=== PATIENT | male | born 1960 | race African-American/Black ===

== ENCOUNTER 2016-05-17 23:02 | Emergency (ER) | payer BC ==
--- NOTE | ~2016-05-17 | CR72 ---
[facility] A Service of [facility] & [facility] / [facility] RADIOLOGY TEXT RESULTS PATIENT: ZULY BOJORQUEZ LOCATION: [facility] : 58 UNIT #: [id number] AGE: [address]: Alexy Chavez MD SEX: M ORDER DR: [id number] [facility] [address] [place], [place] [address] [id number] E MR#: [id number] Acc #: [id number] NAME: ZULY BOJORQUEZ : 1960 SEX: M STUDY DATE/TIME: 05/17/2016 UNIT: [facility] ROOM: STUDY DESCRIPTION: CR Chest Single View Portable Attending Physician: Alexy Chavez M.D. Ordering Physician: Alexy Chavez M.D. Primary Care Physician: Gil Ramirez M.D. MEDICAL IMAGING REPORT This report is preliminary unless electronic signature is present EXAM Portable chest 05/17 at 22:59 INDICATIONS Headache, weakness, shortness of air and loss of appetite for 3 days. History of hypertension. FINDINGS A single AP portable view of the chest shows both lungs to be clear. The heart is normal in size. The mediastinal contour is normal. No significant bone abnormalities are seen. IMPRESSION Normal portable chest. Dictated by... Antelmo Yousif Jr., M.D. THIS IS AN ELECTRONICALLY VERIFIED REPORT Antelmo Yousif Jr., M.D. at 05/18/2016 9:58 PM MARIA ISABEL/aleksandr TD: 05/18/2016 10:24 JOB #: [id number] MEDICAL IMAGING REPORT COPY
--- NOTE | ~2016-05-17 | EKG ---
PATIENT: ZULY BOJORQUEZ UNIT #: [id number] Ventricular Rate: 76 BPM Atrial Rate: 76 BPM P-R Interval: 134 ms QRS Duration: 146 ms Q-T Interval: 410 ms QTC Calculation(Bezet): 461 ms P Cummings: 33 degrees Calculated R Cummings: -56 degrees Calculated T Cummings: 4 degrees Diagnosis Line: Normal sinus rhythm Diagnosis Line: Right bundle branch block Diagnosis Line: Left anterior fascicular block Diagnosis Line: Bifascicular block Diagnosis Line: Voltage criteria for left ventricular hypertrophy Diagnosis Line: Abnormal ECG Diagnosis Line: When compared with ECG of 03-JUN-2010 11:51, Diagnosis Line: (RBBB and left anterior fascicular block) is now Diagnosis Line: Present Diagnosis Line: Confirmed by FÁTIMA WHITE MD ([id number]) on Diagnosis Line: 05/18/2016 4:13:32 PM INTERPRETING MD: CHRISTOPHER BOGGS
[2016-05-17 22:56] LABS: URINE SOURCE CLEAN CATCH
[2016-05-17 22:59] LABS: BASOPHIL% 0.5 % (0-2.5); DIFF IND NO; EOSINOPHIL# 0.1 X10e3 (0-0.7); EOSINOPHIL% 2.2 % (0.0-7.0); HEMOGLOBIN 16.9 gm/dL (13.0-16.0); LYMPHOCYTE# 1.7 X10e3 (1.0-3.5); LYMPHOCYTE% 32.2 % (17.0-45.0); MEAN CELL VOLUME 93.5 FL (83-96); MEAN CORPUSCULAR HEMOGLOBIN 31.5 PG (28-34); MEAN CORPUSCULAR HGB CONC 33.7 g/dL (30-36); MEAN PLATELET VOLUME 8.8 FL (6.5-11.5); MONOCYTE# 0.4 X10e3 (0-1.0); MONOCYTE% 8.3 % (3.0-12.0); NEUTROPHIL# 3.1 X10e3 (1.5-7.1); NEUTROPHIL% 56.8 % (40-75); PLATELET COUNT 215 X10e3 (140-420); RED BLOOD COUNT 5.35 X10e (3.90-5.60); WHITE BLOOD COUNT 5.4 X10e3 (4.0-10.5)
[2016-05-17 23:00] LABS: URINE APPEARANCE CLEAR; URINE BILIRUBIN NEG (NEG); URINE BLOOD NEG (NEG); URINE COLOR YELLOW; URINE GLUCOSE >1000 MG/DL (NEG); URINE KETONE TRACE (NEG); URINE LEUKOCYTE ESTERASE NEG (NEG); URINE NITRATE NEG (NEG); URINE PROTEIN NEG (NEG); URINE SPECIFIC GRAVITY 1.044 (1.003-1.035); URINE UROBILINOGEN 0.2 MG/DL (NEG)
[2016-05-17 23:01] LABS: POC - CKMB <1.0 ng/mL (0.0-7.9); POC - TROPONIN <0.05 ng/mL (<=0.05)
[~2016-05-17 23:02] MED LIST: ANTIVERT PO; ASPIRIN ENTERI325 M1 PO; GLIPIZIDE2.5 MG/BOT PO; LISINOPRIL20 MG PO; METFORMIN HCL500 M1 PO; NAPROXEN PO; SIMVASTATIN20 MG PO
[2016-05-17 23:09] LABS: CULTURE INDICATED? NO
[2016-05-17 23:26] LABS: ALBUMIN SERUM 4.4 g/dL (3.5-5.0); ALKALINE PHOSPHATASE 57 U/L (32-92); ALT (SGPT) 26 U/L (10-40); AST (SGOT) 19 U/L (10-42); BILIRUBIN, DIRECT 0.2 mg/dL (0.0-0.2); BILIRUBIN,INDIRECT 0.7 mg/dL (0.0-0.9); BILIRUBIN,TOTAL 0.9 mg/dL (0.2-2.0); BLOOD UREA NITROGEN 12 mg/dL (9-23); CALCIUM SERUM 8.8 mg/dL (8.4-10.2); CARBON DIOXIDE 24 mmol/L (22-31); CHLORIDE 105 mmol/L (100-111); CREATININE SERUM 1.1 mg/dL (0.6-1.4); GLOM FILT RATE Estimated ABOVE60 mL/min (>60); GLUCOSE FASTING 184 mg/dL (70-110); POTASSIUM 3.8 mmol/L (3.5-5.1); PROTEIN TOTAL SERUM 8.2 g/dL (6.0-8.3); SODIUM 141 mmol/L (135-145)
== END 2016-05-18 00:14 | disposition home or self-care (01) ==
LOC: CED 23:02
PROVIDERS: Emergency Medicine
DX: R53.1 Weakness (principal); E11.9 Type 2 diabetes mellitus without complications; I10 Essential (primary) hypertension; Z90.49 Acquired absence of other specified parts of digestive tract; Z79.82 Long term (current) use of aspirin; Z79.899 Other long term (current) drug therapy
CPT/HCPCS: 36415; 71010; 80048; 80076; 81003; 82553; 82947; 84484; 85025; 93005; 96360; 99284